=== PATIENT | male | born 1935 | race Caucasian/White ===

== ENCOUNTER 2018-06-05 10:55 | Outpatient (CLI) | payer MEDICARE, BC ==
--- NOTE | 2018-06-05 11:42 | RAD ---
THREE VIEWS LUMBOSACRAL SPINE: COMPARISON: 12/03/2013. HISTORY: Back pain. Back surgery in 2013. FINDINGS: Three views of the lumbosacral spine show the patient to be status post posterior fusion of L4 on L5 with bilateral pedicle screws. A disk spacer is seen in the intervening disk space. The vertebral b odies demonstrate normal height without fracture or subluxation. The intervertebral disks are narrow ed at L2-3 and L3-4 with surrounding osteophytes. Laminectomies have been performed in the lower lum bosacral spine. IMPRESSION: Degenerative changes and postsurgical changes of the lumbar spine as above. POS: [facility]
== END 2018-06-05 10:56 | disposition home or self-care (01) ==
LOC: TBSIIMAG 10:55
PROVIDERS: ATTEND Neurological Surgery
DX: M51.36 Other intervertebral disc degeneration, lumbar region (principal); G45.0 Vertebro-basilar artery syndrome; M47.816 Spondylosis without myelopathy or radiculopathy, lumbar region; Z98.890 Other specified postprocedural states
CPT/HCPCS: 72100